=== PATIENT | female | born 1985 | race American Indian/Alaskan Native ===

== ENCOUNTER 2016-10-18 15:28 | Emergency (ER) | payer MEDICAID, OTHER ==
[2016-10-18 15:29] VITALS: BMI 41.6
--- NOTE | 2016-10-18 16:41 | RAD ---
HISTORY: r/o infiltrate COMPARISON: No prior. TECHNIQUE: Chest PA and lateral FINDINGS: LUNGS: No active pulmonary disease. PLEURA: No significant pleural effusion identified. No pneumothorax apparent. CARDIOVASCULAR: Normal. OSSEOUS STRUCTURES: Mild thoracic dextroscoliosis. VISUALIZED UPPER ABDOMEN: Normal. OTHER FINDINGS: None. IMPRESSION: No active disease.
[2016-10-18 17:22] VITALS: BP 122/69; PULSE 78; RESP 16; TEMP 97.6; O2SAT 98
--- NOTE | 2016-10-18 18:22 | C.PDOC ---
History Of Present Illness 31 yr old female presents to the ER with complaints of sharp, right sided rib pain for the past 1 week. States the pain increases with movement. Denies trauma , travel, SOB, back pain, weakness or numbness. Time Seen by Provider: 10/18/16 16:08 Chief Complaint (Nursing): Chest Pain History Per: Patient History/Exam Limitations: no limitations Onset/Duration Of Symptoms: Days (1 week) Past Medical History Reviewed: Historical Data, Nursing Documentation, Vital Signs Vital Signs: Last Vital Signs Temp 97.6 F 10/18/16 17:20 Pulse 78 10/18/16 17:20 Resp 16 10/18/16 17:20 BP 122/69 10/18/16 17:20 Pulse Ox 98 10/18/16 18:24 - [facility] Procedures DELIVERY OF PRODUCTS OF CONCEPTION, EXTERNAL APPROACH (02/12/15) ETHMOIDECTOMY (01/23/13) INTRANASAL ANTROTOMY (01/23/13) INTRODUCTION OF SERUM/TOX/VACCINE INTO MUSCLE, PERC APPROACH (02/12/15) MANUAL ASSIST DELIV NEC (01/18/14) MONITORING OF POC, CARDIAC RATE, PASSENGER CONDUCTOR APPROACH (02/12/15) REPAIR OB LACERATION NEC (01/18/14) Family History: States: No Known Family Hx - Social History Hx Alcohol Use: No Hx Substance Use: No - Immunization History Hx Tetanus Toxoid Vaccination: No Hx Influenza Vaccination: No Review Of Systems Except As Marked, All Systems Reviewed And Found Negative. Respiratory: Negative for: Shortness of Breath Musculoskeletal: Positive for: Other ((+) Right sided rib pain ). Negative for : Back Pain Neurological: Negative for: Weakness, Numbness Physical Exam - Physical Exam Appears: Non-toxic, No Acute Distress Skin: Warm, Dry, No Rash Head: Atraumatic, Normacephalic Chest: Symmetrical, Tenderness (Point tenderness to the right sternum border of the rib cage. ) Cardiovascular: Rhythm Regular, No Murmur Respiratory: Normal Breath Sounds, No Rales, No Rhonchi, No Stridor, No Wheezing Back: Normal Inspection, No CVA Tenderness Extremity: Normal ROM, No Swelling Neurological/Psych: Oriented x3, Normal Speech, Normal Motor ED Course And Treatment ECG: Interpreted By Me, Viewed By Me ECG Rhythm: Sinus Rhythm ECG Interpretation: Normal Interpretation Of ECG: Normal axis. Normal intervals. Rate From EC (BPM) O2 Sat by Pulse Oximetry: 98 (RA ) Pulse Ox Interpretation: Normal - Radiology CXR: Viewed By Me, Read By Radiologist CXR Interpretation: Yes: No Acute Disease Medical Decision Making Medical Decision Making: PLAN: * CXR * EKG * Motrin PO Disposition - Disposition Referrals: [facility] Marshall Parks, [Non-Staff] - Disposition: HOME/ ROUTINE Disposition Time: 16:45 Condition: GOOD Additional Instructions: Thank you for letting us take care of you today. Your provider was Dr. Larson. You were treated for musculoskeletal pain. The emergency medical care you received today was directed at your acute symptoms. If you were prescribed any medication, please fill it and take as directed. It may take several days for your symptoms to resolve. Return to the Emergency Department if your symptoms worsen, do not improve, or if you have any other problems. Please contact your doctor or call one of the physicians/clinics you have been referred to that are listed on the Patient Visit Information form that is included in your discharge packet. Bring any paperwork you were given at discharge with you along with any medications you are taking to your follow up visit. Our treatment cannot replace ongoing medical care by a primary care provider (PCP) outside of the emergency department. Thank you for allowing the [facility] team to be part of your care today. Follow up with your doctor in 2-3 days for re-evaluation. Prescriptions: Cyclobenzaprine [Cyclobenzaprine HCl] 10 mg PO Q8 PRN #20 tab PRN Reason: Muscle Spasm Ibuprofen [Motrin] 600 mg PO Q6 PRN #20 tab PRN Reason: Pain, Moderate (4-7) Instructions: Musculoskeletal Pain (ED) Forms: Gen Discharge Inst German Print Language: NICARAGUAN - Clinical Impression Clinical Impression: Non-cardiac chest pain - Scribe Statement The provider has reviewed the documentation as recorded by the Mattieibe Fannie Alexander Provider Attestation: All medical record entries made by the Mattieibmorgan were at my direction and personally dictated by me. I have reviewed the chart and agree that the record accurately reflects my personal performance of the history, physical exam, medical decision making, and the department course for this patient. I have also personally directed, reviewed, and agree with the discharge instructions and disposition.
--- NOTE | 2016-10-19 11:16 | CARD ---
APPROVED REPORT EKG Measurement Heart [id number] <Conclusion> Normal sinus rhythm Normal ECG
== END 2016-10-18 17:22 | disposition home or self-care (01) ==
LOC: C.ER 15:28
DX: R07.89 Other chest pain (principal)

== ENCOUNTER 2017-09-16 04:51 | Emergency (ER) | payer OTHER ==
[2017-09-16 04:51] VITALS: BMI 41.6
[2017-09-16 04:59] VITALS: BP 116/86; PULSE 71; RESP 20; TEMP 98.1; O2SAT 99
[2017-09-16] MEDS ORDERED: Acetaminophen-Codeine 300/30 mg Tab PO STA (05:16)
[2017-09-16] MEDS ORDERED: Acetaminophen-Codeine 300/30 mg Tab PO ONE (05:29)
--- NOTE | 2017-09-16 05:39 | C.PDOC ---
History Of Present Illness 32 year old female presents to the evaluation of right-sided tooth pain which began 1 week ago. Patient has not yet followed up with a dentist. She denies fever, chills, recent trauma. Time Seen by Provider: 09/16/17 04:59 Chief Complaint (Nursing): Dental Pain History Per: Patient History/Exam Limitations: no limitations Onset/Duration Of Symptoms: Days Current Symptoms Are (Timing): Still Present Quality: Positive for: "Pain" Additional History Per: Patient Past Medical History Reviewed: Historical Data, Nursing Documentation, Vital Signs Vital Signs: Last Vital Signs Temp 98.1 F 09/16/17 04:57 Pulse 71 09/16/17 04:57 Resp 20 09/16/17 04:57 BP 116/86 09/16/17 04:57 Pulse Ox 99 09/16/17 06:26 - Medical History PMH: No Chronic Diseases Surgical History: No Surg Hx - [facility] Procedures DELIVERY OF PRODUCTS OF CONCEPTION, EXTERNAL APPROACH (02/12/15) ETHMOIDECTOMY (01/23/13) INTRANASAL ANTROTOMY (01/23/13) INTRODUCTION OF SERUM/TOX/VACCINE INTO MUSCLE, PERC APPROACH (02/12/15) MANUAL ASSIST DELIV NEC (01/18/14) MONITORING OF POC, CARDIAC RATE, PETAL CUTTER APPROACH (02/12/15) REPAIR OB LACERATION NEC (01/18/14) Family History: States: Unknown Family Hx - Social History Hx Alcohol Use: No Hx Substance Use: No - Immunization History Hx Tetanus Toxoid Vaccination: No Hx Influenza Vaccination: No Review Of Systems Constitutional: Negative for: Fever, Chills ENT: Positive for: Mouth Pain (right-sided tooth pain ) Physical Exam - Physical Exam Appears: Non-toxic, No Acute Distress Skin: Normal Color, Warm, Dry Head: Atraumatic, Normacephalic Eye(s): bilateral: Normal Inspection Oral Mucosa: Moist Teeth: Tender To Palpation, Other (impacted wisdom tooth to right lower posterior molar ) Gingiva: No Erythema Throat: Normal, No Erythema, No Exudate, No Drooling Neck: Normal ROM, Supple Neurological/Psych: Oriented x3, Normal Speech, Normal Cognition ED Course And Treatment O2 Sat by Pulse Oximetry: 99 (on RA) Pulse Ox Interpretation: Normal Progress Note: Tylenol/Codeine PO and Penicillin PO administered. On re- examination, patient is resting comfortably, showing no signs of distress and is stable for discharge. Patient is advised to follow up with dental care within 1-2 days for further evaluation. Disposition Counseled Patient/Family Regarding: Diagnosis, Need For Followup, Rx Given - Disposition Referrals: Dentist, Dental office [Other] Disposition: HOME/ ROUTINE Disposition Time: 05:36 Condition: STABLE Additional Instructions: Please follow up with Dentist Take meds as directed Return to ER if worse Prescriptions: Acetaminophen with Codeine [Tylenol with Codeine #3 Tablet] 1 each PO PRN PRN # 7 tablet PRN Reason: Pain, Moderate (4-7) Penicillin VK [Penicillin VK Tab] 500 mg PO Q6H #20 tab Instructions: Dental Pain (DC) Forms: [employer] (Belarusian) Print Language: YORUBA - Clinical Impression Clinical Impression: Pain, dental - PA / ELIGIBILITY TECHNICIAN / Resident Statement MD/DO has reviewed & agrees with the documentation as recorded. - Scribe Statement The provider has reviewed the documentation as recorded by the Scribe (Michelle Yañez) All medical record entries made by the Scribe were at my direction and personally dictated by me. I have reviewed the chart and agree that the record accurately reflects my personal performance of the history, physical exam, medical decision making, and the department course for this patient. I have also personally directed, reviewed, and agree with the discharge instructions and disposition.
== END 2017-09-16 05:48 | disposition home or self-care (01) ==
LOC: C.ER 04:51 → SUPCPDRO 04:51 → C.ER 05:48
DX: K08.89 Other specified disorders of teeth and supporting structures (principal)

== ENCOUNTER 2018-01-12 18:33 | Emergency (ER) | payer OTHER ==
[2018-01-12 18:34] VITALS: BMI 41.6
[2018-01-12 18:50] VITALS: BP 132/82; PULSE 94; RESP 18; TEMP 98.5; O2SAT 99
--- NOTE | 2018-01-12 19:34 | C.PDOC ---
History Of Present Illness 33 y/o female presents to ED for evaluation of pain, redness, and swelling to left buttock. Pt states she received "vitamin injections" in [place] , and has had pain to the site of injection since that time. Pt notes that the site opened up 5 days ago, with oozing purulent discharge. Notes pain and redness has improved. Denies fever, or other complaints. Time Seen by Provider: 01/12/18 19:02 Chief Complaint (Nursing): Abnormal Skin Integrity History Per: Patient History/Exam Limitations: no limitations Onset/Duration Of Symptoms: Days Current Symptoms Are (Timing): Still Present Location Of Injury: Posterior: Buttock Quality Of Symptoms: Painful, Swollen, Draining Additional History Per: Patient Past Medical History Reviewed: Historical Data, Nursing Documentation, Vital Signs Vital Signs: Last Vital Signs Temp 98.5 F 01/12/18 18:46 Pulse 94 H 01/12/18 18:46 Resp 18 01/12/18 18:46 BP 132/82 01/12/18 18:46 Pulse Ox 99 01/12/18 21:30 - [facility] Procedures DELIVERY OF PRODUCTS OF CONCEPTION, EXTERNAL APPROACH (02/12/15) ETHMOIDECTOMY (01/23/13) INTRANASAL ANTROTOMY (01/23/13) INTRODUCTION OF SERUM/TOX/VACCINE INTO MUSCLE, PERC APPROACH (02/12/15) MANUAL ASSIST DELIV NEC (01/18/14) MONITORING OF POC, CARDIAC RATE, STERILE TECH APPROACH (02/12/15) REPAIR OB LACERATION NEC (01/18/14) Family History: States: Unknown Family Hx - Social History Hx Alcohol Use: No Hx Substance Use: No - Immunization History Hx Tetanus Toxoid Vaccination: No Hx Influenza Vaccination: No Review Of Systems Except As Marked, All Systems Reviewed And Found Negative. Constitutional: Negative for: Fever, Chills Musculoskeletal: Positive for: Other (left buttock pain, swelling) Physical Exam - Physical Exam Appears: Non-toxic, No Acute Distress Skin: Warm, Dry, Other (2 x 3cm of white ulcer like lesion with granulation tissue and yellow discharge to left upper outer gluteal area, no surrounding erythema or fluctuance) Head: Atraumatic, Normacephalic Eye(s): bilateral: Normal Inspection Oral Mucosa: Moist Extremity: Normal ROM, No Tenderness, No Deformity Neurological/Psych: Oriented x3, Normal Speech ED Course And Treatment O2 Sat by Pulse Oximetry: 99 Progress Note: Wound culture ordered. Pt was evaluated by surgical nurse practitioner, Zhen Shoemaker, who states skin abscess was drained spontaneously and is healing by secondary intention. He instructed to apply wet to dry dressing to affected area and to give Rx of Clindamycin. Pt was given Clindamycin. Wet to dry dressing was applied. Patient is being discharged home with instructions to follow up with PMD in 1-2 days. Disposition - Disposition Referrals: Juan Antonio Mao MD [Staff Provider] - Disposition: HOME/ ROUTINE Disposition Time: 19:33 Condition: STABLE Additional Instructions: Follow up within 1-2 days. Return to ED if feel worse. Prescriptions: Clindamycin [Cleocin] 300 mg PO Q6 #28 cap Ibuprofen [Motrin Tab] 600 mg PO Q8 #30 tab Instructions: Skin Abscess Forms: [facility] (Setswana) Print Language: GHANAIAN - Clinical Impression Clinical Impression: Skin abscess - PA / CERTIFIED NEURODIAGNOSTIC TECHNOLOGIST / Resident Statement MD/DO has reviewed & agrees with the documentation as recorded. - Scribe Statement The provider has reviewed the documentation as recorded by the Scribe KP All medical record entries made by the Scribe were at my direction and personally dictated by me. I have reviewed the chart and agree that the record accurately reflects my personal performance of the history, physical exam, medical decision making, and the department course for this patient. I have also personally directed, reviewed, and agree with the discharge instructions and disposition.
--- NOTE | 2018-01-29 23:19 | CP.PCM.CON ---
History of Present Illness - History of Present Illness History of Present Illness: 33F presented to [facility] ED with complaints of swelling in left buttock. Patient state 2 weeks ago she received an iron shot in [place]. Patient states a week later she noticed what appear to be a "pimple" on buttock left but tock. Patient states the skin lesion got began and spontaneously began draining pus. Patient state th purulent discharge resolved about 5 days ago. She is not following up in ED for left buttock swelling and appearance of skin. At time of examination patient denied fever/chills, chest pain, shortness of breath, n/v/d, dysuria, pain with defecation. Review of Systems - Review of Systems Review of Systems: 10 pt ROS reviewed, unremarkable, except as stated in HPI Past Patient History - Past Social History Smoking Status: Never Smoked - PSYCHIATRIC Hx Substance Use: No - SURGICAL HISTORY Hx Surgeries: Yes Other/Comment: nasal surgery - ANESTHESIA Hx Anesthesia: No Hx Anesthesia Reactions: No Meds Home Medications: Home Medication List Medication Instructions Recorded Confirmed Type Clindamycin [Cleocin] 300 mg PO Q6 #28 cap 01/12/18 Rx Ibuprofen [Motrin Tab] 600 mg PO Q8 #30 tab 01/12/18 Rx Allergies/Adverse Reactions: Allergies Allergy/AdvReac Type Severity Reaction Status Date / Time No Known Allergies Allergy Verified 01/12/18 18:50 Physical Exam - Constitutional Appears: Non-toxic, No Acute Distress - Head Exam Head Exam: NORMOCEPHALIC - Eye Exam Eye Exam: EOMI, Normal appearance - ENT Exam ENT Exam: Mucous Membranes Moist - Respiratory Exam Respiratory Exam: NORMAL BREATHING PATTERN - Cardiovascular Exam Cardiovascular Exam: +S1, +S2 - GI/Abdominal Exam GI & Abdominal Exam: Soft. absent: Tenderness - Skin Skin Exam: Dry, Erythema Additional comments: Abscess region which had spontaenously drain now with fresh granulation tissue Wound site closing via secondary intention No areas of fluctuance noted Skin is non erythematous Results - Vital Signs Recent Vital Signs: Last Vital Signs Temp 98.5 F 01/12/18 18:46 Pulse 94 H 01/12/18 18:46 Resp 18 01/12/18 18:46 BP 132/82 01/12/18 18:46 Pulse Ox 99 01/12/18 21:42 Assessment & Plan - Assessment and Plan (Free Text) Assessment: 33F with left buttock abscess which spontaneously drained for 5 days skin site is now healing with good granulation tissue noted Plan: Abscess spontaneously drained No regions of fluctuance noted No purulent drainage Wound base with good granulation tissue, site close via secondary intention local wound care PO x Janice PGY3
== END 2018-01-12 19:41 | disposition home or self-care (01) ==
LOC: C.ER 18:33
DX: L02.31 Cutaneous abscess of buttock (principal)